=== PATIENT | female | born 1945 | race Caucasian/White ===

== ENCOUNTER 2023-03-26 06:50 | Emergency (ER) | payer OTHER ==
[~2023-03-26] VITALS: Ht 144.8 cm; Wt 65.8 kg
[~2023-03-26 06:50] MED LIST: LISINOPRIL2.5 MG; ZETIA10 MG
[2023-03-26] MEDS ORDERED: ACARBOSE25 MG (07:24)
[2023-03-26] MEDS ORDERED: ST. JOSEPH ASPI81 M2 (07:24)
[2023-03-26] MEDS ORDERED: LISINOPRIL30 MG (07:24)
[2023-03-26] MEDS ORDERED: GABAPENTIN100 M2 (07:24)
[2023-03-26] MEDS ORDERED: ROSUVASTATIN CAL5 MG (07:24)
== END 2023-03-26 11:06 | disposition home or self-care (01) ==
LOC: ER 06:50
DX: J10.1 Influenza due to other identified influenza virus with other respiratory manifestations (principal); Z20.822 Contact with and (suspected) exposure to COVID-19

== ENCOUNTER 2023-06-11 11:38 | Emergency (ER) | payer OTHER ==
[~2023-06-11] VITALS: Ht 144.8 cm; Wt 63.5 kg
[~2023-06-11 11:38] MED LIST changes: +ACARBOSE25 MG; +GABAPENTIN100 M2; +LISINOPRIL30 MG; +ROSUVASTATIN CAL5 MG; +ST. JOSEPH ASPI81 M2
[2023-06-11 13:20] LABS: HEMATOCRIT 43.9 % (36.0-45.00); HEMOGLOBIN 14.5 g/dL (12.0-15.00); PLATELET COUNT 197 K/uL (150-450); RED BLOOD COUNT 4.98 M/uL (4.00-6.00); RED CELL DISTRIBUTION WIDTH 14.3 % (11.5-14.5)
[2023-06-11] MEDS ORDERED: PEPCID AC20 MG PO (13:45)
[2023-06-11] MEDS ORDERED: TUSNEL LIQUID178 ML PO (13:45)
[2023-06-11] MEDS ORDERED: PAXLOVID 300-11 EAC1 PO (13:45)
== END 2023-06-11 13:52 | disposition home or self-care (01) ==
LOC: ER 11:38
PROVIDERS: General Practice
DX: U07.1 COVID-19 (principal); E11.9 Type 2 diabetes mellitus without complications; I10 Essential (primary) hypertension
CPT/HCPCS: 36415; 96372; 99284; J1885